=== PATIENT | male | born 1995 | race Caucasian/White ===

== ENCOUNTER 2018-04-30 14:45 | Outpatient (CLI) | payer SELFPAY ==
--- NOTE | 2018-04-30 12:55 | DI.RAD_ITS ---
SYMPTOMS/DIAGNOSIS: PAIN, DECREASED RANGE OF MOTION, S/P HEAVY LIFTING, ABNL CONTOUR RT SCAPULA RIGHT SHOULDER: Five views. No bone or joint abnormality is identified. The soft tissues are unremarkable. IMPRESSION: Negative examination.
== END 2018-04-30 15:05 ==
PROVIDERS: Visit Provider Nurse Practitioner Family
DX: M25.511 Pain in right shoulder (principal); M25.611 Stiffness of right shoulder, not elsewhere classified
CPT/HCPCS: 73030

== ENCOUNTER 2018-12-13 07:45 | Emergency (ER) | payer OTHER, SELFPAY ==
[2018-12-13] VITALS (19 sets, daily range): BP systolic 111–134; BP diastolic 58–75; PULSE 50–74; RESP 16; TEMP 36.6; O2SAT 97–100
[2018-12-13] MEDS: Ondansetron 4 MG/2 ML VIAL (08:10)
--- NOTE | 2018-12-13 08:12 | NUR.NOTE ---
Nursing Note: Pt vomiting, appears very uncomfortable. Writhing in stretcher. MD at bedside.
--- NOTE | 2018-12-13 08:17 | ED.GENADUL_ITS ---
Discharge Plan Disposition Patient Disposition: HOME Condition: Stable Discharge Details Chief Complaint: Nausea/Vomit/Diar Clinical Impression: Nausea & vomiting Primary Care Provider: None,None ED Provider: Cassie Antonio Home Meds and New Rx's Prescriptions: New ondansetron HCl [Zofran] 4 mg tablet 4 mg PO Q8H PRN (Reason: nausea and vomiting) Qty: 7 RF: 0 famotidine [Pepcid] 20 mg tablet 20 mg PO DAILY Qty: 14 RF: 0 Discharge Instructions Instructions: Acute Nausea and Vomiting (ED) Additional Instructions: Take the Zofran as needed directed for any nausea or vomiting. Take the Pepcid daily as directed. You will receive a call from care management regarding a follow-up appointment with the primary care doctor in the next 1 to 2 weeks. Return to the emergency department if you develop any worsening or new concerning symptoms. Discharge Data Discharge Physician: Cassie Antonio Medical Decision Making 23-year-old male with no past medical history who presents with nausea x1 week and vomiting and abdominal pain since this morning. Admits to alcohol use last night. Abdominal pain is minimal at this time, 07/07. Admits to sick contact at work with similar symptoms. Vitals within normal limits. Patient laying on the floor upon my initial evaluation. He was able to stand and lay back on the bed. Normal ENT exam. Abdomen soft nontender. Differential diagnosis includes gastritis, gastroenteritis, cholecystitis, pa ncreatitis. Will place an IV, bolus IV fluids, screening labs, Zofran, Pepcid and GI cocktail and reassess. 0915 -- pt states he feels better - labs reviewed and unremarkable - he has not yet received pepcid or gi cocktail. Will give these and attempt po challenge and reassess. 1000 --patient feels much better and is requesting to go home. He was able to take sips of water and no further vomiting. Reassessment of abdomen is nontender. We will send home with a prescription for Pepcid and Zofran. Patient was placed on care management list to arrange for a follow-up appointment with the primary care doctor. He is instructed to return here if worse. Medical Records Medical records reviewed: Yes I reviewed the patient's medical records. Lab Data Lab results reviewed: Yes I reviewed the patient's lab results. Laboratory Tests Range/Units 12/13/18 12/13/18 08:16 08:16 WBC (4.4-10.8) k/cumm 5.66 RBC (4.50-6.00) m/cumm 4.63 Hgb (13.5-17.5) g/dL 15.1 Hct (40.0-50.0) % 43.1 MCV (80-95) fL 93.1 MCH (27.0-33.0) pg 32.6 MCHC (32.0-36.0) g/dL 35.0 RDW (11.8-14.1) % 12.0 Plt Count (130-400) x1000/uL 217 MPV (8.0-11.0) fL 10.0 Immature Gran % 0.2 Neutrophils % 68.0 Lymphocytes % 22.8 Monocytes % 4.9 Eosinophils % 3.9 Basophils % 0.2 Absolute Neutrophils (1.2-6.7) k/cumm 3.85 Absolute Lymphocytes (1.2-3.4) k/cumm 1.29 Absolute Monocytes (0.11-0.7) k/cumm 0.28 Absolute Eosinophils (0.0-0.7) k/cumm 0.22 Absolute Basophils (0.0-0.2) k/cumm 0.01 Sodium (136-145) mmol/L 141 Potassium (3.5-5.1) mmol/L 3.9 Chloride (98-107) mmol/L 104 Carbon Dioxide (21.0-32.0) mmol/L 27.4 Anion Gap (3-11) mmol/L 9.6 BUN (7-18) mg/dL 9 Creatinine (0.70-1.30) mg/dL 0.94 Estimated GFR/1.73 m2 (mL/min/1.73m2) >= 60.00 Glucose (70-100) mg/dL 94 Calcium (8.5-10.1) mg/dL 8.9 Total Bilirubin (0.2-1.0) mg/dL 0.3 AST (15-37) U/L 20 ALT (12-78) U/L 27 Alkaline Phosphatase (46-116) U/L 63 Total Protein (6.4-8.2) g/dL 7.5 Albumin (3.4-5.0) g/dL 4.1 Lipase (73-393) U/L 60 L HPI General Mode of arrival: ambulatory . Date/Time Provider Initiated Documentation: 12/13/18 08:07 . Limitations to Documentation: no limitations . Information obtained by: patient . HPI Narrative: Patient is a 23-year-old male who presents the ED with complaint of nausea for the past week and vomiting and periumbilical abdominal pain since early this morning. States he has vomited 5 times total which is mainly been food and bile. He describes his abdominal pain as intermittently aching and currently 2/10, was 6/10. He states he drank 2 mixed drinks last night mixed with Gatorade. States he drinks 1-2 beers daily. He denies any drug use. He does admit to sick contacts at work with a coworker who recently had nausea and vomiting. He admits to recent travel to [place] 2 months ago. He denies any recent antibiotics, fever, diarrhea, urinary symptoms, tick bite or rash. Related Data Home Medications Medication Instructions Recorded Confirmed famotidine [Pepcid] 20 mg PO DAILY #14 tab 12/13/18 ondansetron HCl [Zofran] 4 mg PO Q8H PRN #7 tab 12/13/18 Previous Rx's Medication Instructions Recorded famotidine [Pepcid] 20 mg PO DAILY #14 tab 12/13/18 ondansetron HCl [Zofran] 4 mg PO Q8H PRN #7 tab 12/13/18 Allergies Allergy/AdvReac Type Severity Reaction Status Date / Time No Known Allergies Allergy Verified 04/30/18 16:35 General Stated Complaint: Nausea/Vomit/Diar MICK: 3 Review of Systems Review of Systems All systems reviewed & are unremarkable except as noted in HPI and below Constitutional Reports as per HPI, Denies chills and Denies fever(s) Eyes Denies blurry vision ENT Denies dizziness, Denies sore throat and Denies throat swelling Cardiovascular Denies chest pain and Denies dyspnea Respiratory Denies cough and Denies dyspnea Gastrointestinal Reports abdominal pain, Denies diarrhea and Reports vomiting Genitourinary Denies hematuria and Denies dysuria Musculoskeletal Denies back pain and Denies numbness Integumentary/Breasts Denies lesions and Denies rash Neurologic Denies dizziness, Denies focal weakness and Denies numbness Allergic/Immunologic Denies throat swelling [facility] Medical History No significant past medical history (Acute) Surgical History No significant past surgical history (Acute) Social History Smoking/Tobacco Use Status: Current every day Tobacco Type: cigarettes Smoking cigarettes per day: 10 Alcohol Intake: current Alcohol Intake frequency: 0-2 drinks per day Alcohol type: beer Drug use: Never Substance use type: does not use Household members: significant other 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 What type of physical activity do you participate in: other Details: Work is physically demanding Exam Const General: cooperative, healthy appearing and no acute distress HENMT Head: normal to inspection Ears: hearing grossly normal bilaterally, external ears normal and TM's normal bilaterally General nose exam: external nose normal Face and sinus: normal facial exam Mouth: oral mucosae normal Throat: posterior oropharynx normal Eyes General: appearance normal, both eyes and all related structures Pupils: PERRL EOM: EOM intact bilaterally Neck Neck: normal visual inspection and No submandibular swelling Lymphatic: no lymphadenopathy noted Chest Chest: normal inspection of the chest and no tenderness Resp Effort & Inspection: normal respiratory effort and able to speak in complete sentences Auscultation: clear to auscultation bilaterally Cardio Rate: regular rate Rhythm: regular rhythm GI Inspection: normal to inspection Palpation: soft, not firm, not rigid and nontender Auscultation: normal bowel sounds Male General Exam: Yes normal external exam Skin General skin exam: no rashes or lesions noted Neuro General: alert, awake and oriented x3 Cognition: normal cognition Speech: speech normal Motor: muscle tone normal throughout Sensory Exam: no sensory deficits noted Extrem General: normal to inspection, full ROM, normal capillary refill, no calf tenderness bilaterally and no edema Psych Appearance: grossly normal Mental Status: mental status grossly normal Speech and Movement: speech and movement normal Affect: normal affect Course Vital Signs Temperature 97.9 F 12/13/18 07:50 Pulse 74 12/13/18 07:50 Respiratory Rate 16 12/13/18 07:50 Blood Pressure 134/74 12/13/18 07:50 Temperature 97.9 F 12/13/18 07:50 Temperature Source Skin 12/13/18 07:50 Pulse 74 12/13/18 07:50 Respiratory Rate 16 12/13/18 07:50 Respiratory Effort Non-Labored 12/13/18 07:50 Blood Pressure 134/74 12/13/18 07:50 Blood Pressure Position Supine 12/13/18 07:50 Oxygen Delivery Method Room Air 12/13/18 07:50 Oxygen Flow Rate 0 12/13/18 07:50 Pain Level 4 12/13/18 07:50
[2018-12-13 08:32] LABS: Abs Immature Grans 0.01 k/cumm (0.0-0.09); Absolute Basophil Count 0.01 k/cumm (0.0-0.2); Absolute Eosinophil Count 0.22 k/cumm (0.0-0.7); Absolute Lymphocyte Count 1.29 k/cumm (1.2-3.4); Absolute Monocyte Count 0.28 k/cumm (0.11-0.7); Absolute Neutrophil Count 3.85 k/cumm (1.2-6.7); Basophils % 0.2; Eosinophils % 3.9; HCT 43.1 % (40.0-50.0); HGB 15.1 g/dL (13.5-17.5); Immature Grans % 0.2; Lymphocytes % 22.8; Mean Corpuscular Hemoglobin 32.6 pg (27.0-33.0); Mean Corpuscular Volume 93.1 fL (80-95); Monocytes % 4.9; Platelet Count 217 x1000/uL (130-400); RBC 4.63 m/cumm (4.50-6.00); White Blood Cell Count 5.66 k/cumm (4.4-10.8)
[2018-12-13 08:50] LABS: ALT 27 U/L (12-78); AST 20 U/L (15-37); Albumin 4.1 g/dL (3.4-5.0); Alkaline Phosphatase 63 U/L (46-116); Anion Gap 9.6 mmol/L (3-11); BUN 9 mg/dL (7-18); Bilirubin, Total 0.3 mg/dL (0.2-1.0); CO2 27.4 mmol/L (21.0-32.0); CREATININE 0.94 mg/dL (0.70-1.30); Calcium 8.9 mg/dL (8.5-10.1); Chloride 104 mmol/L (98-107); Glucose 94 mg/dL (70-100); Lipase 60 U/L (73-393); Potassium 3.9 mmol/L (3.5-5.1); Sodium 141 mmol/L (136-145); Total Protein 7.5 g/dL (6.4-8.2)
[2018-12-13] MEDS: FAMOTIDINE 20 MG/50 ML BAG 200 MG IVPB (09:28)
--- NOTE | 2018-12-13 09:29 | NUR.NOTE ---
Nursing Note: pt resting in stretcher, no signs of distress. reports moderate improvement in symptoms. Pt has not had further episode of vomiting. Will continue to monitor.
--- NOTE | 2018-12-13 10:00 | NUR.NOTE ---
Nursing Note: pt resting comfortably in stretcher, no signs of distress. facial expression and body language relaxed.
--- NOTE | 2018-12-14 03:15 | NUR.NOTE ---
Nursing Note: FAXED REFERAL TO ON 12/13/18
== END 2018-12-13 10:16 | disposition home or self-care (01) ==
PROVIDERS: Emergency Provider Physician Assistant
DX: R11.2 Nausea with vomiting, unspecified (principal); R10.9 Unspecified abdominal pain
CPT/HCPCS: 36415; 80053; 83690; 96374; 99284; 85025; J2405

== ENCOUNTER 2022-04-08 19:34 | Emergency (ER) | payer BC, MEDICAID, SELFPAY ==
[2022-04-08 19:39] VITALS: BP 142/75; PULSE 87; RESP 16; TEMP 36.6; O2SAT 99
--- NOTE | 2022-04-08 20:05 | W.ED.GENAD ---
Discharge Plan Disposition Patient Disposition: HOME Condition: Stable Discharge Details Chief Complaint: Laceration Clinical Impression: Avulsion of fingertip Primary Care Provider: Kilo Samayoa ED Provider: Meg Garcias Home Meds and New Rx's Prescriptions: No Action varenicline 0.5 mg tablet 0.5 mg PO .COMPLEX Qty: 53 0RF Rx Instructions: 0.5 mg orally start 1 tab qd for 3 days, then t tab bid; quit smoking on day 8; Call for refill after one month fluoxetine [Prozac] 20 mg capsule 20 mg PO DAILY Discharge Instructions Instructions: Laceration Without Closure (ED) Additional Instructions: Keep dressing on for the next 2 to 3 days. When you do remove the dressing please run it under water, do not just take the dressing off. Please take Tylenol or Ibuprofen with food every 4-6 hours as needed for pain and swelling. Return to the ER for any return of bleeding which she cannot control by pressure, signs of infection including red streaks, drainage, swelling and increased pain or concerns. Stand Alone Forms: Work Release Referrals: Kilo Samayoa DO [Primary Care Provider] - 1 week Discharge Data Discharge Date/Time-TO BE ENTERED AT DEPARTURE: 04/08/22 20:52 Medical Decision Making 26-year-old male presents to the ER with a chief complaint of right thumb avulsion which occurred approximately 30 minutes prior to arrival while slicing potatoes with a mandolin. Wound was clean with sterile normal saline, tourniquet applied, Dermabond applied to the tip of the finger and Surgicel dressing. Bleeding is controlled. Tube gauze was applied over that and Xeroform gauze. Instructed patient on home care he verbalized understanding. Discussed strict return instructions. This text was generated using [employer] system, please disregard any oddities of phrase or misspellings. HPI General Mode of arrival: ambulatory. Date/Time Provider Initiated Documentation: 04/08/22 19:36. Limitations to Documentation: no limitations. Information obtained by: patient, RN notes reviewed and old records reviewed. HPI Narrative: 26-year-old male presents to the ER with a chief complaint of right thumb avulsion which occurred approximately 30 minutes prior to arrival while slicing potatoes with a mandolin. He does endorse EtOH. He does have tip of his right thumb avulsed with active venous bleeding. Laceration does appear to be down to the bone. Distal sensation intact. Last tetanus is up-to-date per patient report. Related Data Home Medications Medication Instructions Recorded Confirmed fluoxetine 20 mg capsule (Prozac) 20 mg PO DAILY 12/07/21 12/22/21 varenicline 0.5 mg tablet 0.5 mg PO .COMPLEX #53 tabs 12/22/21 12/22/21 Previous Rx's Medication Instructions Recorded varenicline 0.5 mg tablet 0.5 mg PO .COMPLEX #53 tabs 12/22/21 Allergies Allergy/AdvReac Type Severity Reaction Status Date / Time No Known Allergies Allergy Verified 12/22/21 10:43 General Stated Complaint: Laceration MICK: 4 PFSH All Active Problems (Updated 04/08/22 @ 20:26 by Meg Garcias NP) Avulsion of fingertip (Acute) Establishing care with new doctor, encounter for (Acute) Currently attempting to quit smoking (Acute) Depression (Chronic) Strain of right shoulder (Acute) Medical History (Updated 04/08/22 @ 20:26 by Meg Garcias NP) No significant past medical history Surgical History No significant past surgical history Social History (Updated 11/29/21 @ 12:56 by Edie Nova) Smoking/Tobacco Use Status: Current every day Tobacco Type: cigarettes Years smoked: 10 Tobacco: How many years used: 10 Quit status: considering quitting Smoking risk assessment performed?: Yes Alcohol Intake: current Alcohol Intake frequency: 3 or more drinks per day Drug use: Never Substance use type: does not use Adopted: Yes Caregiver/Support person: No Foster care: No Household members: spouse and children Housing: apartment Number of Children: 2 Communication Needs: None Education Level: high school Do you need help understanding health information?: Never 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 Pets and animals: Yes Pets and animals: cat(s) and dog(s) Sexually active: Yes Do you think of yourself as: straight/heterosexual Current gender identity: male What is your relationship status?: How often do you talk on the phone with friends or family?: three or more times per week Do you belong to any clubs or organized social groups?: no Panel score (0-1 are the most socially isolated patients): 2 Corin/Alevism: None Seatbelt use: always Drive 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 Avulsed tip of thumb Course Vital Signs Vital signs: Vital Signs Temperature 36.6 C 04/08/22 19:39 Pulse 87 04/08/22 19:39 Respiratory Rate 16 04/08/22 19:39 Blood Pressure 142/75 H 04/08/22 19:39 Pulse Oximetry 99 04/08/22 19:39 Temperature 36.6 C 04/08/22 19:39 Temperature Source Oral 04/08/22 19:39 Pulse 87 04/08/22 19:39 Respiratory Rate 16 04/08/22 19:39 Respiratory Effort 04/08/22 19:53 Blood Pressure 142/75 H 04/08/22 19:39 Blood Pressure Position Sitting 04/08/22 19:39 Pulse Oximetry 99 04/08/22 19:39 Oxygen Delivery Method Room Air 04/08/22 19:39 Oxygen Flow Rate 0 04/08/22 19:39 Pain Level 7 04/08/22 19:39 PAWSS Have you Been Recently Intoxicated or Drunk Within the Last 30 days?: No Have you Ever Experienced Previous Episodes of Alcohol Withdrawal?: No Have you ever Experienced Withdrawal Seizures?: No Have you ever Experienced Delirium Tremens(DT)s?: No Have you ever undergone Alcohol Rehabilitation Treatment (i.e, inpt ot outpatient treatment programs)?: No Have you ever Experienced Blackouts?: Yes Have you ever Combined Alcohol with other Downers within the last 90 days?: No Have you ever Combined Alcohol with any other Substance of Abuse during the last 90 days?: No Positive Blood Alcohol level on Presentation? [PCS.BAL]: No Evidence of Increased Autonomic Activity (i.e. HR>120, tremor, sweating, agitation, nausea)?: No Result: 1
== END 2022-04-08 20:52 | disposition home or self-care (01) ==
LOC: ER 20:55
PROVIDERS: Emergency Provider Registered Nurse Emergency; PCP Family Medicine
DX: S61.011A Laceration without foreign body of right thumb without damage to nail, initial encounter (principal); W31.89XA Contact with other specified machinery, initial encounter
CPT/HCPCS: 99283

== ENCOUNTER 2025-01-20 15:31 | Outpatient (REF) | payer BC, SELFPAY | END 2025-01-20 15:32 | disposition home or self-care (01) | LOC: LBN 15:31 | PROVIDERS: PCP Family Medicine; Visit Provider Family Medicine | DX: K52.9 Noninfective gastroenteritis and colitis, unspecified (principal) | CPT/HCPCS: 87015; 87177; 87209; 87269; 87272; 83993 ==

== ENCOUNTER 2025-02-06 13:43 | Emergency (ER) | payer BC, SELFPAY ==
[2025-02-06] VITALS (15 sets, daily range): BP systolic 134–164; BP diastolic 68–97; PULSE 74–95; RESP 16; TEMP 37.1; O2SAT 96–100
--- NOTE | 2025-02-06 14:45 | DI.CT_ITS ---
Exam(s) CT ABDOMEN PELVIS W EXAM: CT ABDOMEN PELVIS W CLINICAL HISTORY: lower abdomen pain, diarrhea. TECHNIQUE: Imaging Protocol: Axial computed tomography images with coronal and sagittal reformatted images were created and reviewed CONTRAST MATERIAL: Intravenous: Omnipaque 350 Contrast volume:75 ml Oral: no COMPARISON: CT CT ABDOMEN PELVIS W from 05/02/2024 FINDINGS: ABDOMEN and PELVIS: Lung Bases: No acute findings. Liver: Normal density. No suspicious mass. Gallbladder and biliary tract: No radiodense calculus. No wall thickening or pericholecystic fluid. No biliary dilation. Pancreas: Normal density. No abnormal calcifications or inflammatory process. No evidence of mass. Spleen: Normal. Kidneys: Normal size, contour and axis. No radiodense stones. No obstructive uropathy. No suspicious masses seen. Adrenal glands: No masses seen. Vasculature: Abdominal aorta non-dilated. Soft tissues: Unremarkable. Bladder: No gross wall thickening. No calculi.No focal mass. Bowel: The colon is nearly empty from the descending through rectosigmoid. There is a small amount of stool in the right side of the colon. No air-fluid levels. No obstruction. No bowel wall thickening. Appendix normal. Peritoneal cavity: No ascites. No focal collection. No mesenteric inflammatory response. No free air. Bones: Unremarkable for age. Reproductive organs: Unremarkable. Lymph nodes: No pathologically enlarged lymph nodes. IMPRESSION:: No acute abnormality in the abdomen or pelvis. RADIATION DOSE DELIVERED: Total DLP DATA REPOSITORY: All CT scans at this facility are submitted to the National Radiology Data Registry (NRDR) Dose Index Registry (DIR) with the [employer] (ACR). RADIATION OPTIMIZATION: All CT scans at this facility use at least one of these dose optimization techniques: automated exposure control; mA and/or kV adjustment per patient size (includes targeted exams where dose is matched to clinical indication); or iterative reconstruction.
--- NOTE | 2025-02-06 14:53 | W.ED.GENAD ---
Discharge Plan Disposition Patient Disposition: Home Condition: Stable Discharge Details Clinical Impression: Bloody stools, Abdominal pain Primary Care Provider: Kilo Samayoa ED Provider: Archie Mckenzie Home Meds and New Rx's Prescriptions: No Action No Known Home Meds Discharge Instructions Additional Instructions: Your blood work and CAT scan did not show any concerning findings at this time. Follow-up with Dr. Jackson for your colonoscopy. If you feel more ill or have new symptoms such as persistent vomiting return to emergency department for reevaluation. HPI General Mode of arrival: ambulatory. Date/Time Provider Initiated Documentation: 02/06/25 13:54. Limitations to Documentation: no limitations. Information obtained by: patient. History of Present Illness 29 year old M presents to the emergency department with the chief complaint of diarrhea, blood this AM, described as moderate, Patient started experiencing this month(s) (2) and it has been constant. No relieving factors improve symptom(s), No exacerbating factors reported . Patient notes denies chest pain, nausea/vomiting and shortness of breath. Patient did receive the following treatments prior to arrival, none Related Data Home Medications ?Medication ?Instructions ?Recorded ?Confirmed Unknown [No Known Home Meds] 01/13/25 02/06/25 Allergies Allergy/AdvReac Type Severity Reaction Status Date / Time No Known Allergies Allergy Verified 02/06/25 13:54 General Stated Complaint: GI Bleed MICK: 3 Review of Systems All systems reviewed & are unremarkable except as noted in HPI and below Constitutional Constitutional: Denies chills, Denies fever(s) and Denies weakness Cardiovascular Cardiovascular: Denies chest pain and Denies dyspnea Respiratory Respiratory: Denies cough and Denies dyspnea Gastrointestinal Gastrointestinal: Reports abdominal pain, Reports hematochezia, Reports diarrhea, Denies nausea and Denies vomiting Neurologic Neurologic: Denies weakness Exam Const General: no acute distress Orientation: alert HENMT Head: normal to inspection Ears: external ears normal General nose exam: external nose normal Mouth: moist mucous membranes Eyes General: appearance normal, both eyes and all related structures Neck Neck: normal visual inspection Resp Effort & Inspection: normal respiratory effort and able to speak in complete sentences Cardio Rate: regular rate GI Palpation: soft and tender Skin General skin exam: no rashes or lesions noted Neuro General: patient alert and patient oriented x3 Extrem General: normal to inspection Psych Mental Status: mental status grossly normal Course Vital Signs Vital signs: Vital Signs Temperature 37.1 C 02/06/25 13:51 Pulse 93 H 02/06/25 13:51 Respiratory Rate 16 02/06/25 13:51 Blood Pressure 134/68 02/06/25 13:51 Pulse Oximetry 98 02/06/25 13:51 Temperature 37.1 C 02/06/25 13:51 Pulse 93 H 02/06/25 13:51 Respiratory Rate 16 02/06/25 13:51 Blood Pressure 134/68 02/06/25 13:51 Pulse Oximetry 98 02/06/25 13:51 Pain Level 7 02/06/25 13:51 Medical Decision Making 29-year-old male who has had 2 or so months of constant diarrhea daily he is seeing general surgery and is scheduled to have a colonoscopy this month comes in as he says he had some bright red blood in his bowel movements today. He has also had intermittent lower abdominal discomfort described as mild and not severe. No nausea or vomiting. No fevers. No recent travel. He is well-appearing on exam, his abdomen is soft and nondistended. He does have tenderness in the lower abdomen in the left more so on the right without guarding or rebound. Suspect he could have inflammatory bowel disease. Will check CBC, CMP and lipase and also CT abdomen pelvis to evaluate for evidence of colitis versus diverticulitis. Labs and imaging unremarkable and patient is currently asymptomatic and hemodynamically stable. He is stable for discharge and will follow-up with his general surgeon for colonoscopy and return precautions given Differential Diagnosis Differential Diagnosis: Inflammatory bowel disease, internal hemorrhoids, diverticulitis PFSH All Active Problems (Updated 02/06/25 @ 16:17 by Archie Mckenzie MD) Abdominal pain (Acute) Bloody stools (Acute) Chronic diarrhea (Acute) GERD (gastroesophageal reflux disease) (Chronic) Establishing care with new doctor, encounter for (Acute) Currently attempting to quit smoking (Acute) Depression (Chronic) Strain of right shoulder (Acute) Medical History (Updated 02/06/25 @ 16:17 by Archie Mckenzie MD) No significant past medical history Surgical History No significant past surgical history Social History (Updated 01/11/23 @ 14:58 by Preethi Godwin CMA) Smoking/Tobacco Use Status: Current every day Tobacco Type: cigarettes Years smoked: 10 Tobacco: How many years used: 10 Quit status: considering quitting Smoking risk assessment performed?: Yes Alcohol Intake: current Alcohol Intake frequency: 3 or more drinks per day Drug use: Never Substance use type: does not use Adopted: Yes Caregiver/Support person: No Foster care: No Household members: spouse and children Housing: apartment Number of Children: 3 number of grandchildren: 0 Communication Needs: Corrective Lenses Education Level: high school Do you need help understanding health information?: Never 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 Pets and animals: Yes Pets and animals: cat(s) and dog(s) Sexually active: Yes Do you think of yourself as: straight/heterosexual Current gender identity: male What is your relationship status?: How often do you talk on the phone with friends or family?: never How often do you get together with friends or relatives?: never Do you belong to any clubs or organized social groups?: no Panel score (0-1 are the most socially isolated patients): 1 Corin/Lutheran: None Special corin needs: No Seatbelt use: always Helmet use: Yes Helmet use: always 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
[2025-02-06] MEDS: Normal Saline - Diluent 50 ML VIAL IJ (15:09)
[2025-02-06] MEDS: Normal Saline Flush 10 ML SYR IVP (15:10)
[2025-02-06] MEDS: Omnipaque 350 MG/ML 100 ML BTL IJ (15:10)
[2025-02-06 15:14] LABS: Abs Immature Grans 0.02 10^3/uL (0.0-0.06); HCT 46.9 % (40.0-50.0); HGB 16.5 g/dL (13.5-17.5); Immature Grans % 0.2 %; MCH 33.3 pg (27.0-33.0); MCHC 35.2 % (32.0-36.0); MCV 95 fL (80-95); MPV 9.5 fL (8.0-11.0); Platelet Count 236 10^3/uL (130-400); RBC 4.95 10^6/uL (4.36-5.78); RDW 11.9 % (11.8-14.1); RDW-SD 41.1 fL; WBC 8.53 10^3/uL (4.4-10.8)
[2025-02-06 15:30] LABS: ALT 42 U/L (16-63); AST 29 U/L (15-37); Albumin 4.7 g/dL (3.4-5.0); Alkaline Phosphatase 74 U/L (46-116); Anion Gap 10.6 mmol/L (3-11); BUN 6 mg/dL (7-18); Bilirubin, Direct 0.3 mg/dL (0.0-0.2); Bilirubin, Total 0.9 mg/dL (0.2-1.0); CO2 28.4 mmol/L (21.0-32.0); Calcium 9.6 mg/dL (8.5-10.1); Chloride 102 mmol/L (98-107); Estimated GFR 103.84 (mL/min/1.73m2); Glucose 84 mg/dL (74-106); Lipase 22 U/L (<78); Magnesium 1.9 mg/dL (1.8-2.4); Potassium 3.7 mmol/L (3.5-5.1); Sodium 141 mmol/L (136-145); Total Protein 8.4 g/dL (6.4-8.2)
== END 2025-02-06 16:32 | disposition home or self-care (01) ==
PROVIDERS: Emergency Provider Emergency Medicine; PCP Family Medicine
DX: K92.1 Melena (principal); R10.30 Lower abdominal pain, unspecified; R19.7 Diarrhea, unspecified; Z87.19 Personal history of other diseases of the digestive system
CPT/HCPCS: 99283; 99285; 80053; 83690; 74177; 82248; 83735; 85025; J3490

== ENCOUNTER 2025-02-13 06:51 | Day surgery (SDC) | payer BC, SELFPAY ==
--- NOTE | 2025-02-12 15:58 | COLE_ITS ---
Date of service: 02/13/25 Time of Service: 09: Colonoscopy Report Date of procedure: 02/13/25 Pre-op diagnosis general: Chronic diarrhea Post-op diagnosis procedure note: other (Segmental colitis associated with diverticulosis; colon polyp) Procedure: Colonoscopy with biopsies and polypectomy Surgeon: Juan Jackson Anesthesia Type: General:No Airway Estimated blood loss (mL): 10 Pathology: other (Nondirected biopsies of terminal ileum, nondirected biopsies of colon, nondirected biopsies of sigmoid colon, 0.25 cm flat polyp at 30 cm) Complications: None Disposition: same day Indications: Daniel is a 29-year-old male with chronic diarrhea and some intermittent hematochezia he needs a diagnostic colonoscopy Prep: Miralax/Dulcolax Procedure Start Time: :27 Procedure End Time: :55 Retraction Time: 13 Findings: Segmental colitis associated with diverticulosis; colon polyp Procedure Description: After the induction of anesthesia, and with the patient in left lateral decubitus position, I began by performing an external anorectal exam.? Perineum and skin were normal, as was the anal verge.? There was no evidence of external hemorrhoids.? Next, I performed a digital rectal exam.? I did appreciate any abnormal findings.? Next, I advanced a colonoscope into the rectal vault.? I performed retroflexion.? There is grade 1 internal hemorrhoids.? Remainder of the rectal mucosa appears totally normal and healthy. I do not see any signs of ulcerative colitis. Using irrigation, I then advanced the colonoscope beyond the rectal folds and into the sigmoid colon before advancing towards the cecum.?The scope was noted to be in the cecum by identification of the ileocecal valve and appendiceal orifice. I cannulated the terminal ileum. I saw no signs of Crohn's disease, to be safe however, I did perform some nondirected cold forceps biopsies. There was minimal bleeding. I then began withdrawing the colonoscope using repeated irrigation as necessary for full evaluation of the colonic mucosa. I performed some nondirected biopsies along the length of the colon mucosa, which was otherwise normal and healthy appearing. These were to rule out microscopic colitis. As the camera came up into the sigmoid segment, there was evidence of diverticulosis, and a few areas of thickened mucosa suggestive of segmental colitis associated with the diverticulosis. Cold forceps biopsies were performed of this. Around 30 cm from the anal verge was a 0.25 cm flat polyp. This was retrieved with cold forcep polypectomy with no significant bleeding. The section of SCAD extended from about 15 cm past the anal verge (the top of the rectum) to about 30 cm. Once the scope was withdrawn to the level of the rectum, great care was taken to examine portions of the rectal folds.? Finally, the scope was withdrawn and the patient was brought to the same-day surgery recovery unit as the anesthetic wore off. ?The findings and instructions were shared with the patient prior to discharge. [place] Bowel Prep [place] Bowel Prep Right Colon: 2 Left Colon: 3 Transverse Colon: 3 Total Score: 8
--- NOTE | 2025-02-12 15:58 | W.PM.DSUDISC ---
Date of service: 02/13/25 Discharge Plan Disposition Patient Disposition: Home Condition: Good Discharge Details Reason For Visit: Colonoscopy Attending Provider: Juan Jackson Primary Care Provider: Kilo Samayoa Home Meds and New Rx's Prescriptions: No Action No Known Home Meds Discharge Instructions Instructions: Colon polyps, Diverticulosis, High-fiber diet Additional Instructions: Daniel, was great seeing you today, and hope you make a quick recovery from the procedure. Things went smoothly. I suspect the source of your symptoms are some inflammation of the colon in the sigmoid segment, that appears to be associated with some diverticulosis. This is commonly referred to a segmental colitis associated with diverticulosis (or SCAD). Diverticula are little weak spots in the muscular layer of the colon wall. These cause the inside lining to pocket her pouch outwards. Often times, thesecause no symptoms at all. Other patients experience pain, usually on the left side of their abdomen from small perforations of these little diverticular pockets. And a third group of patients experiences inflammation of the tissue in that segment without clear perforation. I suspect that this may be the case for you. This often times causes some narrowing of that area, which usually results in a little bit of blockage, and some overflow diarrhea. It can also result in inflammation and bleeding. I think things like Crohn's disease and ulcerative colitis can be ruled out here. However, I did do multiple biopsies all along the length of your colon to see if that offers any other suggestions. I would like to see what those results show before making any other decisions. In the meantime, there be no harm in adding fiber to your diet. I usually recommend that patients with diverticular disease get out 20 to 30 g of fiber per day. All nutritional food labels include 2 g of fiber per serving size. I suspect if you track this, you probably find that you are eating about 10 to 15 g of fiber per day. That is most common in the [place]. Supplementing your diet with a psyllium containing product such as Metamucil is 1 easy way to help augment your dietary fiber. I usually recommend the patient start this slowly, as it can be a little bit bloating. Add something like 2 to 3 g/day for the first week, then increase it in the next week etc. until you start hitting your goal. The biopsy results will take about a week or 2 to get back, and certainly when I have that information I will be in touch. Incidentally, I did find to remove 1 small polyp today. It is not at all related to your symptoms. Once I know the nature of the polyp, as well as the biopsy results, we can talk about the need for future colonoscopies. If you need anything or have any questions at all, please do not hesitate to ask at any time. 1. If tolerated, consume a soft, low fiber diet for 1-2 days. 2. Do not drive, drink alcohol, operate machinery, make critical decisions, or do activities that require coordination or balance for 24 hours. 3. Because air was put into your colon during the procedure, expelling air from your rectum (passing gas or farting) is normal. 4. You may not have a bowel movement for 1-3 days because of the colonoscopy prep. This is normal. 5. Go directly to the emergency room if you notice any of the following: Develop chills (warm to touch), or if you have a thermometer and your temperature is above 101 Difficulty breathing or difficultly swallowing Persistent vomiting Severe abdominal pain, other than gas cramps Severe chest pain Black, tarry stools Any bleeding ? exceeding one tablespoon 6. Call your physician if the site where your intravenous was started becomes red, swollen, painful, and warm to touch. 7. Your physician has reviewed your pre-procedure medications. Please continue to take those medications as previously ordered. You will be given specific information/education regarding any changes to your medications before leaving. Stand Alone Forms: Anesthesia Discharge Inst., Colonoscopy Post Instructions, Dorene Gann (DSU) Activity:: Activity as Tolerated Diet:: As Tolerated Discharge Orders Discharge Orders: Discharge Order (Routine); Ordered 02/12/25 Ordered By: Juan Jackson DS: Diagnosis Discharge Diagnosis (1) Chronic diarrhea: Status: Acute Asessment and Plan: Follow-up on biopsy results
[2025-02-13 07:00] VITALS: BP 129/91; PULSE 83; RESP 16; TEMP 36.5; O2SAT 98
[2025-02-13] MEDS: Lactated Ringers 1,000 ML 80 ML IV (07:27)
--- NOTE | 2025-02-13 08:18 | ANES.PREOP_ITS ---
General Info Date of Service Date Performed: 02/13/25 Height: 5 ft 11 in Weight: 95.3 kg Body Mass Index (BMI): 29.2 Surgical Procedure: Operation Date: 02/13/25 08:20 Proposed Procedure Side Surgeon p Colonoscopy Juan Jackson MD Actual Procedure Side Surgeon p Colonoscopy Not Applicable Juan Jackson MD Pre-Op Diagnosis Post-Op Diagnosis Diagnostic colonoscopy, chronic diarrhea Meds Allergies and Home Medications Allergies Allergy/AdvReac Type Severity Reaction Status Date / Time No Known Allergies Allergy Verified 02/13/25 07:09 Home Medication ?Medication ?Instructions ?Recorded Unknown [No Known Home Meds] 01/13/25 Current Visit Medications: Current Medications Generic Name Dose Route Start Last Admin Trade Name Freq PRN Reason Stop Dose Admin Ringer's Solution 1,000 mls @ 80 mls/hr 02/13/25 06:00 02/13/25 07:27 IV 02/13/25 23:59 80 mls/hr INFUSION DENISSE Administration IV Miscellaneous Supplies 1 each 02/13/25 06:00 Iv Access IV 02/13/25 23:59 DIRECTED DENISSE Sodium Chloride 0 ml 02/13/25 06:00 Normal Saline Flush 10 Ml Syr IV 02/13/25 23:59 PRN PRN Sodium Chloride 0 ml 02/13/25 06:00 Normal Saline 10 Ml Vial IJ 02/13/25 23:59 DIRECTED PRN Sterile Water 0 ml 02/13/25 06:00 Water,Injection,Sterile 10 Ml Vial IJ 02/13/25 23:59 DIRECTED PRN PFSH Active Problems Active Problems: Problem Status Onset Code Abdominal pain Acute R10.9 Bloody stools Acute K92.1 Chronic diarrhea Acute K52.9 GERD (gastroesophageal reflux disease) Chronic K21.9 Establishing care with new doctor, encounter for Acute Z76.89 Currently attempting to quit smoking Acute Z72.0 Depression Chronic F32.A Strain of right shoulder Acute S46.911A Medical History Medical History No significant past medical history Surgical History Surgical History H/O wisdom tooth extraction No significant past surgical history Tobacco Smoking/Tobacco Use Status: Current every day Tobacco Type: e-cigarettes Alcohol Alcohol Intake: current Alcohol intake frequency: 3 or more drinks per day Alcohol type: beer Substance Use Substance use: Never Substance use type: does not use Details: 4-5 drinks a day Vital Signs and Lab Results Vital Signs Most Recent Vital Signs in EMR: Most Recent Vital Signs Temp Pulse Resp BP Pulse Ox 36.5 C 83 16 129/91 H 98 02/13/25 07:00 02/13/25 07:00 02/13/25 07:00 02/13/25 07:00 02/13/25 07:00 Lab Results Complete Blood Count: WBC, (4.4-10.8) 8.53 10^3/uL 02/06/25, 15:06 RBC, (4.36-5.78) 4.95 10^6/uL 02/06/25, 15:06 Hgb, (13.5-17.5) 16.5 g/dL 02/06/25, 15:06 Hct, (40.0-50.0) 46.9 % 02/06/25, 15:06 Plt Count, (130-400) 236 10^3/uL 02/06/25, 15:06 Complete Metabolic Panel: Sodium, (136-145) 141 mmol/L 02/06/25, 15:06 Potassium, (3.5-5.1) 3.7 mmol/L 02/06/25, 15:06 Chloride, (98-107) 102 mmol/L 02/06/25, 15:06 Carbon Dioxide, (21.0-32.0) 28.4 mmol/L 02/06/25, 15 :06 BUN, (7-18) 6 mg/dL L 02/06/25, 15:06 Creatinine, (0.70-1.30) 1.0 mg/dL 02/06/25, 15:06 Est GFR (CKD-EPI 2020), (mL/min/1.73m2) 103.84 02/06/25, 15:06 Magnesium, (1.8-2.4) 1.9 mg/dL 02/06/25, 15:06 Calcium, (8.5-10.1) 9.6 mg/dL 02/06/25, 15:06 Albumin, (3.4-5.0) 4.7 g/dL 02/06/25, 15:06 Glucose, (74-106) 84 mg/dL 02/06/25, 15:06 Liver Function Panel: ALT, (16-63) 42 U/L 02/06/25, 15:06 AST, (15-37) 29 U/L 02/06/25, 15:06 Pancreas Panel: Lipase, (<78) 22 U/L 02/06/25, 15:06 Anesthesia Assessment and Plan Anesthesia History Personal History: No History of Anesthesia Complications Family History: No Family History of Anesthesia Complications Exercise Tolerance Exercise Tolerance: Metabolic Equivalents>4 Pertinent Negatives Pertinent Negatives: No Symptoms of GERD, No Major Cardiovascular Symptoms or Complaints and No Major Pulmonary Symptoms or Complaints Cardiac & Pulmonary Exam Cardiac Exam: Normal S1/S2 Heart Sounds Pulmonary Exam: Clear Bilateral Breath Sounds Implantable Cardiac Device Does patient have a Pacemaker or an ICD?: No Airway Exam Known Difficult Airway: No Mallampati Class: 2 Mouth Opening: Normal (> 3cm) Thyromental Distance: Greater than 3 cm Neck Range of Motion: Full ROM Neck Circumference: Normal Teeth Condition: Normal Dentition ASA Classification ASA Score: ASA 2 Emergency Case?: No NPO Status NPO Status: NPO Clears >2 hours, Solids >8 hours Anesthesia Plan Resuscitation Status: Full Code Anesthesia Technique: General Anesthesia Airway Planned: Natural Airway Monitors Used: Standard Monitors
[2025-02-13 08:19] VITALS: BMI 29.2
--- NOTE | 2025-02-13 08:45 | BOWEL_PTH ---
PATIENT: Daniel Galo LOC: ES U#:[id number] AGE/SX: 29/M ROOM: RE02/13/[address]: Juan Jackson MD : 1995 BED: DIS: 02/13/2025 SPEC #: [id number] RECD: 02/13/25 12:43 STATUS: ALETHA RE #: [id number] ESTELA: 02/13/25 08:[address]: Juan Jackson DEPT: Surgical Specimen RECD BY: Sirisha Bergman ENTERED: 02/13/25 12:45 SP TYPE: Bowel OTHR DR: Kilo Samayoa DO Tissues: 1 - BIOPSY BOWEL 2 - BIOPSY BOWEL 3 - BIOPSY BOWEL 4 - BIOPSY BOWEL Procedures: GROSS AND MICRO LEVEL 4 Comments: [id number]
[2025-02-13 09:10] VITALS: BP 106/70; PULSE 81; RESP 14; TEMP 36.2; O2SAT 96
--- NOTE | 2025-02-13 09:23 | W.ANESPOSTOP ---
Postoperative Evaluation Date, Time and Location Date Performed: 02/13/25 Time Performed: 09:23 Patient Location: Day Surgery Unit Vital Signs Most Recent Imported Vital Signs: Most Recent Vital Signs Temp Pulse Resp BP Pulse Ox 36.2 C L 81 14 106/70 96 02/13/25 09:10 02/13/25 09:10 02/13/25 09:10 02/13/25 09:10 02/13/25 09:10 Pain Score Most Recent Pain Score: Most Recent Pain Score Pain Level 0 02/13/25 09:10 Assessment Mental Status: Awake (Alert & Oriented to Patient Baseline) Airway and Respiratory Function: Patent airway with normal (patient baseline) respiratory exam Cardiovascular Function: Hemodynamically Stable Hydration Status: Adequately Hydrated Nausea & Vomiting: No Nausea or Vomiting Pain: Pt. Denies Any Pain Peripheral Nerve Block: Patient did not receive a nerve block
[2025-02-13 09:31] VITALS: BP 120/78; PULSE 68; RESP 16; TEMP 36; O2SAT 98
== END 2025-02-13 09:56 | disposition home or self-care (01) ==
LOC: SUR 06:51
PROVIDERS: PCP Family Medicine; Visit Provider Surgery
PROC: 0DJD8ZZ Inspection of Lower Intestinal Tract, Via Natural or Artificial Opening Endoscopic (ICD-10-PCS; CPT 45378; principal; 2025-02-13 08:15)
DX: K52.9 Noninfective gastroenteritis and colitis, unspecified (principal); K50.10 Crohn's disease of large intestine without complications; K57.30 Diverticulosis of large intestine without perforation or abscess without bleeding; K63.5 Polyp of colon
CPT/HCPCS: 45380; 88305; J2003; J2704